=== PATIENT | male | born 1980 | race Caucasian/White ===

== ENCOUNTER 2021-06-07 11:27 | Emergency (ER) | payer OTHER, SELFPAY ==
[2021-06-07 11:30] VITALS: BP 138/84; PULSE 83; RESP 18; TEMP 37.6; O2SAT 96; BMI 32.9
--- NOTE | 2021-06-07 12:14 | ED.FALL ---
HPI - Fall General Chief Complaint: Fall Stated Complaint: Head Inj (Fall) Time Seen by Provider: 06/07/21 12:03 Source: patient Mode of arrival: ambulatory Limitations: no limitations History of Present Illness HPI Narrative: 41-year-old male who is currently transitioning to female transgender presenting to the ED with complaints of intermittent headaches, body aches after she had a mechanical fall approximately 3 days ago with loss of consciousness. She reports that she was evaluated at [facility] and had imaging along with a CT scan of her brain which showed no abnormalities. She reports that she also had labs and was all normal. Although they did not give her any Motrin Tylenol or muscle relaxant or anything she was able to buy Motrin Tylenol [id number]. Although Motrin Tylenol are not providing any symptomatic relief. Denies any new injuries complaints or concerns. Does not want any new imaging at this time. complaint: fall Onset (ago): day(s) (3) Fall from: standing Fall witnessed: no Place fall occurred: home Loss of consciousness: yes Prolonged down time: no and unclear Symptoms prior to fall: none Context: tripped/slipped Location of injury: head, neck and back Severity: moderate Quality: burning and aching Associated symptoms (after fall): headache and other (And body pains) Related Data Previous Rx's Medication Instructions Recorded acetaminophen 500 mg tablet 500 mg PO Q6H PRN #14 tab 06/07/21 (Tylenol Extra Strength) cyclobenzaprine 10 mg tablet 10 mg PO Q8H PRN #14 tab 06/07/21 ibuprofen 800 mg tablet 800 mg PO Q8H PRN #14 tab 06/07/21 trolamine salicylate 10 % topical 1 appl TOPICAL QID PRN #226.8 g 06/07/21 cream (Aspercreme) Allergies Allergy/AdvReac Type Severity Reaction Status Date / Time No Known Allergies Allergy Unverified 02/02/20 15:06 [No Known Allergies*] Review of Systems Review of Systems: Constitutional : No changes in activity, No lethargy, No recent prior head injury, No agitation, No increased fussiness ENT/Mouth : No Ear Pain, No Nasal discharge/drainage Eyes: No Eye Pain, No Swelling, No Redness, No Foreign Body, No Vision Changes Cardiovascular : No Chest Pain, No SOB Respiratory : No Cough Gastrointestinal : No Nausea, No Vomiting, No abdominal Pain Genitourinary : No Dysuria, No Urinary Frequency, No Urinary Incontinence, No Urgency, No Flank Pain Musculoskeletal : + joint pains, No neck stiffness, No back pain/injury Skin : No lacerations Neuro : No unsteady gait, No Paresthesias, No Loss of Consciousness, No altered mental status, + intermittent Headache Yes all other systems are reviewed and are negative [facility] Past Medical History Attestation statement: The following information was validated with the patient. Medical History Diabetes Hyperkalemic periodic paralysis Substance-related disorder Surgical History H/O tooth extraction Social History Social History Advance Directives: No Advance Directives Information Provided: No Physical Exam Vital Signs: Vital Signs: Last Vital Signs Temp 99.6 F 06/07/21 11:30 Pulse 83 06/07/21 11:30 Resp 18 06/07/21 11:30 BP 138/84 06/07/21 11:30 Pulse Ox 96 06/07/21 11:30 BMI result Body Mass Index 32.9 Vital signs have been reviewed as normal and appeared to be correct. Blood pressure normal. Heart rate normal. Respiration rate normal. Temperature normal. Oxygen saturation normal. Appearance: Alert. Oriented X3. No acute distress. Head: Normal external exam. Normocephalic. Atraumatic. Able to rotate head bilaterally. Eyes: PERRLA. EOMI. No nystagmus noted. Conjunctiva and sclera normal. Eyelids normal. Corneal reflex normal. ENT: EAC normal. TM's Normal. Hearing normal. Pharynx normal. Uvula midline. tongue midline. Moist mucous membranes. No trismus noted. No drooling noted. No muffled voice noted. No nystagmus noted. Neck: Normal inspection. Neck supple. FROM. No adenopathy. Trachea midline. Thyroid Normal. No meningeal signs. No neck mass noted. CVS: Normal heart rate and rhythm. Heart sound normal. No murmurs noted. Pulses normal throughout. Respiratory: No respiratory distress. Painless inspiration. Breath sounds normal. No wheezes/rales/rhonchi noted. Chest nontender. No accessory muscle usage noted or decreased air movement noted. Abdomen: Soft and nontender. Bowel sounds normal in all 4 quadrants. No distention noted. No organomegaly noted. No visible injury noted. Back: No CVA tenderness. Full range of motion noted. Skin: Skin warm and dry. Normal skin color. Normal skin turgor. No rashes/lesions/lacerations noted. Extremities: No lower extremity edema. Extremities exhibit normal range of motion. Extremities nontender. Able to shrug shoulders bilaterally and keep up against resistance. Neuro: Oriented X 3. No motor deficit. No sensory deficit. Reflexes normal. Moving all extremities. No focal motor deficits. Cranial nerves II-XI intact bilaterally. Facial strength normal. Normal cognition. Speech normal. Gait normal. Strength 5/5 throughout. No pronator drift. No tremor noted. No fasciculations noted. No rigidity noted. Muscle tone normal throughout. No asterixis noted. [id number] test normal. Heel to aguilar test normal. Tandem gait normal. Does not sway with eyes open. Romberg test negative. Rapid alternating movement upper extremity normal. Rapid alternating movement lower extremity normal. Hand drop from overhead Misses face. Course Course Course Narrative: 41-year-old male who is currently transitioning to female transgender presenting to the ED with complaints of intermittent headaches, body aches after she had a mechanical fall approximately 3 days ago with loss of consciousness. She reports that she was evaluated at [facility] and had imaging along with a CT scan of her brain which showed no abnormalities. She reports that she also had labs and was all normal. Although they did not give her any Motrin Tylenol or muscle relaxant or anything she was able to buy Motrin Tylenol [id number]. Although Motrin Tylenol are not providing any symptomatic relief. Denies any new injuries complaints or concerns. Does not want any new imaging at this time. Although I did offer CT scan of head/neck and back although patient reports that she already had all these imaging and they were all negative she just needs something for pain and she does not want any narcotics. Therefore at this time will DC home with Flexeril and instructions to continue taking the Motrin Tylenol and to return if any new or worsening symptoms. Patient understands agrees with this plan. MDM - Fall Medical Records Attestation: I reviewed the patient's medical records. Discharge Plan Discharge Clinical Impression: Fall, Muscle strain Patient Disposition: Home, Self-Care Instructions: Musculoskeletal Pain (ED), Fall Prevention (ED) Prescriptions: New cyclobenzaprine 10 mg tablet 10 mg PO Q8H PRN (Reason: Muscle spasm) Qty: 14 RF: 0 ibuprofen 800 mg tablet 800 mg PO Q8H PRN (Reason: pain) Qty: 14 RF: 0 acetaminophen [Tylenol Extra Strength] 500 mg tablet 500 mg PO Q6H PRN (Reason: pain) Qty: 14 RF: 0 trolamine salicylate [Aspercreme] 10 % cream 1 appl topical QID PRN (Reason: muscle pain) Qty: 226.8 RF: 0 Referrals: Physician,Unknown J [Primary Care Provider] - 2 days (your pcp) Print Language: Welsh
[2021-06-07] MEDS: Cyclobenzaprine HCl 10 MG TABLET PO (12:33)
== END 2021-06-07 12:54 | disposition home or self-care (01) ==
PROVIDERS: Emergency Provider Emergency Medicine Emergency Medical Services
DX: T14.8XXA Other injury of unspecified body region, initial encounter (principal); Y99.9 Unspecified external cause status; M79.18 Myalgia, other site
CPT/HCPCS: 99283; 99284

== ENCOUNTER 2021-06-26 10:49 | Emergency (ER) | payer OTHER, SELFPAY ==
[2021-06-26 10:56] VITALS: BP 138/79; PULSE 76; RESP 19; TEMP 36.1; O2SAT 100; BMI 33.0
--- NOTE | 2021-06-26 11:26 | ED_ITS ---
HPI - General Adult General Chief complaint: General Medical Stated complaint: swollen testicles Time Seen by Provider: 06/26/21 11:26 History of Present Illness HPI narrative: Patient complains of redness and irritation under his foreskin for 2 weeks, no other discharge no scrotal or testicular swelling no fever Patient is a diabetic who says his sugar is poorly controlled and is followed in the [facility] in [place] Related Data Previous Rx's Medication Instructions Recorded acetaminophen 500 mg tablet 500 mg PO Q6H PRN #14 tab 06/07/21 (Tylenol Extra Strength) cyclobenzaprine 10 mg tablet 10 mg PO Q8H PRN #14 tab 06/07/21 ibuprofen 800 mg tablet 800 mg PO Q8H PRN #14 tab 06/07/21 trolamine salicylate 10 % topical 1 appl TOPICAL QID PRN #226.8 g 06/07/21 cream (Aspercreme) clotrimazole 1 % topical cream 1 appl TOPICAL BID 14 Days #30 g 06/26/21 mupirocin 2 % topical ointment 1 appl TOPICAL BID 5 Days #15 g 06/26/21 Allergies Allergy/AdvReac Type Severity Reaction Status Date / Time No Known Allergies Allergy Unverified 02/02/20 15:06 [No Known Allergies*] Review of Systems Review of Systems: Positive for rash inner foreskin Negatives are no fever no chills no dizziness no weakness no fainting no feeling faint no headache no neck pain no chest pain no shortness of breath no abdominal pain no dysuria no discharge no testicular swelling or pain, no other rashes Yes all other systems are reviewed and are negative PMFSH Past Medical History Source: nursing notes reviewed Medical History Diabetes Hyperkalemic periodic paralysis Substance-related disorder Surgical History H/O tooth extraction Social History Social History Advance Directives: No Advance Directives Information Provided: No Physical Exam Vital Signs: Vital Signs: Last Vital Signs Temp 97 F 06/26/21 10:56 Pulse 76 06/26/21 10:56 Resp 19 06/26/21 10:56 BP 138/79 06/26/21 10:56 Pulse Ox 100 06/26/21 10:56 BMI result Body Mass Index 33.0 General appearance comfortable cheerful relax no acute distress Head is normocephalic atraumatic Neck is supple Respiratory no distress Abdomen soft nontender Genital exam under the foreskin there is a red rash with some white patches there is no discharge no other sores no herpetic lesions, no testicular swelling or tenderness Extremities full range of motion x4 Skin no other rashes Course Course Course Narrative: Patient is compliant with his metformin but when he does his fingersticks there often between 2 and 300 and he is advised that he may need medication adjustment from his doctor, I also did call and or chronology and they said they could probably see him within 2 weeks to help get control of his diabetes The patient said he understood this and would follow with both his doctor and hopefully with the endocrinology clinic His balanitis is treated with mupirocin and clotrimazole Medical Decision Making Lab Data Labs: Lab Results 06/26/21 Range/Units 12:25 Chlam trachomat DNA PCR NOT DETECTED (Not Detect.) N.gonorrhoeae DNA (PCR) NOT DETECTED (Not Detect.) Discharge Plan Discharge Clinical Impression: Diabetes, Balanitis Patient Disposition: Home, Self-Care Additional Instructions: You likely have a fungal infection or possibly a bacterial infection under the foreskin We are treating this with anti fungal and an antibiotic cream THIS IS MOST LIKELY FROM POORLY CONTROLLED DIABETES When sugar is high fungus and bacteria grow out of control I called our endocrine and Diabetes Clinic and they have a new doctor Dr. Chakraborty who is going to start in 1-2 weeks You are on his list of new patient's and they should call you with in 10 days with an appointment If they do not call you, you should call them after 10 days Make sure that the desk staff in the facility you are staying in knows to expect a call and take a message Return any time for fever worse pain and swelling any worse condition or any concerns Prescriptions: New mupirocin 2 % ointment 1 appl topical BID 5 Days Qty: 15 0RF clotrimazole 1 % cream 1 appl topical BID 14 Days Qty: 30 0RF No Action cyclobenzaprine 10 mg tablet 10 mg PO Q8H PRN (Reason: Muscle spasm) Qty: 14 0RF ibuprofen 800 mg tablet 800 mg PO Q8H PRN (Reason: pain) Qty: 14 0RF acetaminophen [Tylenol Extra Strength] 500 mg tablet 500 mg PO Q6H PRN (Reason: pain) Qty: 14 0RF trolamine salicylate [Aspercreme] 10 % cream 1 appl topical QID PRN (Reason: muscle pain) Qty: 226.8 0RF Referrals: Corinne Llamas MD [Physician] - 1 week (Diabetic with poorly controlled glucose often in 300 range) Interventions: ED Discharge Assessment Last Done: 06/26/21 12:28 Discharge Date/Time: 06/26/21 12:30
[2021-06-26] MEDS: Fluconazole 150 MG TABLET PO (12:22)
[2021-06-26 14:17] LABS: CT PCR NOT DETECTED (Not Detect.); NG PCR NOT DETECTED (Not Detect.)
== END 2021-06-26 12:30 | disposition home or self-care (01) ==
PROVIDERS: Physician Assistant Medical; Emergency Provider Emergency Medicine
DX: N48.1 Balanitis (principal); E11.9 Type 2 diabetes mellitus without complications
CPT/HCPCS: 87491; 87591; 99283

== ENCOUNTER 2021-06-28 12:46 | Emergency (ER) | payer OTHER, SELFPAY ==
[2021-06-28 14:51] VITALS: BP 139/79; PULSE 78; RESP 16; TEMP 36.9; O2SAT 100; BMI 32.9
[2021-06-28 15:43] LABS: Glucose, Whole Blood 226 mg/dL (60-115)
--- NOTE | 2021-06-28 15:48 | ED.GENADULT ---
HPI - General Adult General Chief complaint: Skin/Abscess/Foreign Body Stated complaint: diabetic infection Time Seen by Provider: 06/28/21 15:16 Source: patient Mode of arrival: ambulatory History of Present Illness HPI narrative: 41-year-old male recently diagnosed with balanitis seen in the ED on 06/26/2021 Rx Mupirocin and Clotrimazole, & given 1 time dose of p.o. Diflucan in the ED, presenting to the ED complaining of continued/worsening penile discharge/irritation and swelling. Reports compliance with medications. Denies lesions, scrotal pain/swelling, concern for STI, dysuria/hematuria, abdominal pain, nausea/vomiting. Denies being sexually active. Onset (ago): day(s) Related Data Previous Rx's Medication Instructions Recorded acetaminophen 500 mg tablet 500 mg PO Q6H PRN #14 tab 06/07/21 (Tylenol Extra Strength) cyclobenzaprine 10 mg tablet 10 mg PO Q8H PRN #14 tab 06/07/21 ibuprofen 800 mg tablet 800 mg PO Q8H PRN #14 tab 06/07/21 trolamine salicylate 10 % topical 1 appl TOPICAL QID PRN #226.8 g 06/07/21 cream (Aspercreme) clotrimazole 1 % topical cream 1 appl TOPICAL BID 14 Days #30 g 06/26/21 mupirocin 2 % topical ointment 1 appl TOPICAL BID 5 Days #15 g 06/26/21 clotrimazole 1 % topical cream 1 appl TOPICAL BID 14 Days #30 g 06/27/21 Allergies Allergy/AdvReac Type Severity Reaction Status Date / Time No Known Allergies Allergy Unverified 02/02/20 15:06 [No Known Allergies*] Review of Systems Review of Systems: Constitutional: No Fever, No Chills ENT/Mouth: No Ear Pain, No Nasal Congestion, No sore throat, No Rhinorrhea, No Swallowing Difficulty Cardiovascular: No Chest Pain, No SOB Respiratory: No Cough, No Sputum Gastrointestinal: No Nausea, No Vomiting, No Diarrhea, No Constipation, No Abdominal pain Genitourinary: No Dysuria, No Urinary Frequency, No Hematuria, No Urinary Incontinence, No Urgency, No Flank Pain, +penile discharge/swelling, no scrotal pain/tenderness Musculoskeletal: No joint pain, No Myalgias, No Joint Swelling Skin: No Skin Lesions, No rash Yes all other systems are reviewed and are negative [facility] Past Medical History Attestation statement: The following information was validated with the patient. Medical History Diabetes Hyperkalemic periodic paralysis Substance-related disorder Surgical History H/O tooth extraction Social History Social History Advance Directives: No Advance Directives Information Provided: No Physical Exam ED Vital Signs: Vital Signs - 24 hr 06/28/21 14:51 Temperature 98.4 F Pulse Rate 78 Respiratory Rate 16 Blood Pressure 139/79 Pulse Oximetry 100 BMI result Body Mass Index 32.9 Const General: cooperative and healthy appearing Orientation/consciousness: patient oriented x3 Limitations: no limitations HENMT Head: Yes normal to inspection Ears: hearing grossly normal bilaterally General nose exam: Normal external nose present Face and sinus: Yes normal facial exam Eyes General: appearance normal, both eyes and all related structures EOM: EOMs intact bilaterally Neck Neck: Yes normal visual inspection and Yes no meningeal signs Resp Effort & Inspection: normal respiratory effort and no respiratory distress Cardio Rate: regular rate Heart sounds: S1 normal heart sound present and S2 normal heart sound present GI Inspection: Yes normal to inspection Palpation (GI): Soft to palpation, nontender, no guarding and not rigid Other: Foreskin mildly swollen, retractable. Scant amount of thick white discharge noted under foreskin. No lesions/bumps. No scrotal/testicular swellingo tenderness Penis: uncircumcised Skin Rashes: no rashes Wounds: no wounds Neuro General: patient oriented x3 and no meningeal signs Gait exam (Neuro): Normal gait present Extrem General: Yes normal to inspection Course Course Course Narrative: POC 226 -1800--UA negative Medical Decision Making [facility] Narrative Medical decision making narrative: 41-year-old male recently diagnosed with balanitis seen in the ED on 06/26/2021 Rx Mupirocin and Clotrimazole, & given 1 time dose of p.o. Diflucan in the ED, presenting to the ED complaining of continued/worsening penile discharge/irritation and swelling. On exam VSS, NAD, physical exam as above, foreskin retractable with scant amount of white thick DC noted consistent with fungal balanitis. Patient urinating appropriately, was treated appropriately 2 days ago. Will obtain UA Discussed with patient continued compliance with previously prescribed medications Lab Data Labs: Lab Results 06/28/21 06/28/21 Range/Units 15:33 16:36 POC Glucose 226 H (60-115) mg/dL Urine Color YELLOW Urine Appearance CLEAR Urine pH 5.5 (5.0-8.0) Ur Specific [place] 1.015 (1.005-1.025) Urine Protein NEG (NEG-TRACE) MG/DL Urine Glucose (UA) >=1000 H (NEG) MG/DL Urine Ketones NEG (NEG) MG/DL Urine Blood NEG (NEG) Urine Nitrite NEG (NEG) Ur Leukocyte Esterase NEG (NEG) Urine RBC 0-2 (0) /HPF Urine WBC 0-2 (0-4) /HPF Ur Squamous Epith Cells TRACE /LPF Urine Bacteria NONE /LPF Discharge Plan Discharge Clinical Impression: Balanitis Patient Disposition: Home, Self-Care Instructions: Balanitis (ED) Additional Instructions: continue previously prescribed medications Make sure you clean the penis very well, keep dry and clean Please follow-up with your primary care doctor If symptoms persist or worsen, your unable to urinate, continued or worsening swelling, develops red bumps/lesions or testicular swelling please return to the ED Prescriptions: No Action cyclobenzaprine 10 mg tablet 10 mg PO Q8H PRN (Reason: Muscle spasm) Qty: 14 0RF ibuprofen 800 mg tablet 800 mg PO Q8H PRN (Reason: pain) Qty: 14 0RF acetaminophen [Tylenol Extra Strength] 500 mg tablet 500 mg PO Q6H PRN (Reason: pain) Qty: 14 0RF trolamine salicylate [Aspercreme] 10 % cream 1 appl topical QID PRN (Reason: muscle pain) Qty: 226.8 0RF mupirocin 2 % ointment 1 appl topical BID 5 Days Qty: 15 0RF clotrimazole 1 % cream 1 appl topical BID 14 Days Qty: 30 0RF clotrimazole 1 % cream 1 appl topical BID 14 Days Qty: 30 0RF Referrals: Physician,None [Primary Care Provider] - 5 days (as needed)
[2021-06-28 16:45] LABS: Appearance Urine CLEAR; Color Urine YELLOW; Glucose Urine UA >=1000 MG/DL (NEG); Leukocyte Esterase Urine NEG (NEG); Nitrite Urine NEG (NEG); PH 5.5 (5.0-8.0); Specific Gravity - Urine 1.015 (1.005-1.025); Urine Blood NEG (NEG); Urine Ketones NEG (NEG); Urine Protein NEG (NEG-TRACE)
[2021-06-28 17:52] LABS: RBC Urine 0-2 /HPF (0); Squamous Epithelial Cell Urine TRACE /LPF; WBC Urine 0-2 /HPF (0-4)
== END 2021-06-28 18:07 | disposition home or self-care (01) ==
PROVIDERS: Physician Assistant; Emergency Provider Emergency Medicine Emergency Medical Services
DX: N48.1 Balanitis (principal); R36.9 Urethral discharge, unspecified; E11.9 Type 2 diabetes mellitus without complications
CPT/HCPCS: 81001; 82947; 99283

== ENCOUNTER 2022-01-08 23:28 | Emergency (ER) | payer OTHER, SELFPAY ==
[2022-01-08 23:46] VITALS: BP 145/90; PULSE 104; RESP 16; TEMP 36.2; O2SAT 97; BMI 32.1
[2022-01-09 00:49] LABS: Glucose, Whole Blood 119 mg/dL (60-115)
[2022-01-09 07:21] LABS: Glucose, Whole Blood 68 mg/dL (60-115)
[2022-01-09 07:34] LABS: Glucose, Whole Blood 173 mg/dL (60-115)
--- NOTE | 2022-01-09 07:51 | ED.GENADULT ---
HPI - General Adult General Chief complaint: General Medical Stated complaint: Unsure of Blood Sugar levels Time Seen by Provider: 01/09/22 07:37 Source: patient Mode of arrival: ambulatory Limitations: no limitations History of Present Illness HPI narrative: 41 year old male who presented to the emergency department for evaluation of sudden onset of feeling anxious and very cold after taking metformin and Trulicity. The patient has Type II diabetes and has been on these medications for months. The patient does not have a glucometer at home and does not check his blood sugar and does not know how high or low his glucose normally runs. He ate well throughout the day and did not miss any meals. He states thatImmediately after taking his medications he felt very cold. He had a sudden onset of alexandra in the center of his chest which he describes as a sharp pain which was 4/ 10 and a dull pain which was 10/10. The pain lasted seconds to minutes and he had several episodes while in the ED. He has anxiety and he believes he was having an anxiety attack as well. He came to the emergency department for an evaluation and to have his blood glucose checked. His glucose at triage was 64. He was given food to eat with improvement of his glucose with POC values of 119 at 0044 hours and 173 at 0723 hours. Related Data Previous Rx's Medication Instructions Recorded acetaminophen 500 mg tablet 500 mg PO Q6H PRN pain #14 tabs 06/07/21 (Tylenol Extra Strength) cyclobenzaprine 10 mg tablet 10 mg PO Q8H PRN Muscle spasm #14 06/07/21 tabs ibuprofen 800 mg tablet 800 mg PO Q8H PRN pain #14 tabs 06/07/21 trolamine salicylate 10 % topical 1 appl topical QID PRN muscle pain 06/07/21 cream (Aspercreme) #226.8 grams clotrimazole 1 % topical cream 1 appl topical BID 14 days #30 06/26/21 grams mupirocin 2 % topical ointment 1 appl topical BID 5 days #15 grams 06/26/21 clotrimazole 1 % topical cream 1 appl topical BID 2 weeks #30 06/27/21 grams Allergies Allergy/AdvReac Type Severity Reaction Status Date / Time No Known Allergies Allergy Unverified 02/02/20 15:06 [No Known Allergies*] Review of Systems Review of Systems: Yes all other systems are reviewed and are negative PMFSH Past Medical History [facility] Narrative: Social History: He smoked three cigarettes per day x 24 years. He denies alcohol and drug use Medical History Diabetes Hyperkalemic periodic paralysis Substance-related disorder Surgical History H/O tooth extraction Social History Social History Advance Directives: No Advance Directives Information Provided: Yes Physical Exam ED Vital Signs: Vital Signs - 24 hr 01/08/22 23:46 Temperature 97.1 F Pulse Rate 104 H Respiratory Rate 16 Blood Pressure 145/90 H Pulse Oximetry 97 Oxygen Delivery Method Room Air BMI result Body Mass Index 32.1 Const General: cooperative and no acute distress Orientation/consciousness: oriented to person and oriented to place Limitations: no limitations HENMT Head: Yes normal to inspection, Yes normocephalic and Yes atraumatic Ears: external ears normal General nose exam: Normal external nose present Face and sinus: Yes normal facial exam Mouth: Normal oral and palatal mucosa present Throat: Yes posterior oropharynx normal Eyes General: appearance normal, both eyes and all related structures Pupils: Equal, round and reactive pupils present Neck Neck: Yes normal visual inspection, Yes no lymphadenopathy, Yes trachea midline and Yes supple Chest Chest palpation & inspection: normal inspection of the chest and normal palpation of entire chest wall Resp Effort & Inspection: normal respiratory effort and able to speak in complete sentences Auscultation: clear to auscultation bilaterally Cardio Rate: regular rate Rhythm: regular rhythm Heart sounds: S1 normal heart sound present, S2 normal heart sound present and no murmurs GI Inspection: Yes normal to inspection Palpation (GI): Soft to palpation, nontender and no guarding Auscultation: normal bowel sounds General: Yes no CVA tenderness Back/Spine/Pelvis Back: no CVA tenderness Skin General skin exam: no rashes or lesions noted Neuro General: oriented to person and oriented to place Cranial nerves: Yes CN's II-XII intact bilaterally and Yes Equal, round and reactive pupils present Cognition (Neuro): normal cognition Motor exam (neuro): 5/5 motor strength present throughout Extrem General: Yes normal to inspection Psych Appearance: grossly normal Speech and movement: Normal speech and movement present Affect: normal affect Attitude: cooperative Thought process: Normal thought process present Thought content: Normal thought content present Course Course Course Narrative: 41 year old male who presented to the emergency department for evaluation of sudden onset of feeling anxious and very cold after taking metformin and Trulicity. The patient did have a slightly low POC glucose of 64 on presentation and this did improve after eating food in the ED. The pharmokinetics of metformin and Truilicity could not cause a sudden drop in glucose and I did discuss this with him. I believe that his symptoms were caused by anxiety and I did discuss this with the patient. He was advised to get a glucometer and to get training so that he can track his glucose values to improve his diabetes. He was discharged to home. Medical Decision Making Lab Data Labs: Lab Results 01/08/22 01/09/22 01/09/22 Range/Units 23:39 00:44 07:27 POC Glucose 68 119 H 173 H (60-115) mg/dL Discharge Plan Discharge Clinical Impression: Hypoglycemia, Anxiety Patient Disposition: Home, Self-Care Instructions: Anxiety (ED) Additional Instructions: Your point of care glucose (sugar) at triage today was 68. Your repeat point of care glucose after eating were 119 at 00:44 hours and 173 at 07:27 hours. At this time, I do not think that you low sugar was caused by either metformin or Trulicity in you should continue to take these medications as prescribed by your doctor. You should talk to your doctor about getting a glucose meter and you should be trained on how to check your sugars at home slit if he have a low sugar you can eat some more food. I do think that the low sugar then triggered anxiety attack in you and this explains your other symptoms. Follow-up with your doctor in 2 days. Please return to the emergency department if your symptoms get worse or if you develop any symptoms that are concerning to you. Prescriptions: No Action cyclobenzaprine 10 mg tablet 10 mg PO Q8H PRN (Reason: Muscle spasm) Qty: 14 0RF ibuprofen 800 mg tablet 800 mg PO Q8H PRN (Reason: pain) Qty: 14 0RF acetaminophen [Tylenol Extra Strength] 500 mg tablet 500 mg PO Q6H PRN (Reason: pain) Qty: 14 0RF trolamine salicylate [Aspercreme] 10 % cream 1 appl topical QID PRN (Reason: muscle pain) Qty: 226.8 0RF mupirocin 2 % ointment 1 appl topical BID 5 Days Qty: 15 0RF clotrimazole 1 % cream 1 appl topical BID 14 Days Qty: 30 0RF clotrimazole 1 % cream 1 appl topical BID 14 Days Qty: 30 0RF Interventions: LWBS Worksheet Last Done: 01/09/22 05:23 ED Discharge Assessment Last Done: 01/09/22 08:22 Discharge Date/Time: 01/09/22 08:23
== END 2022-01-09 08:23 | disposition home or self-care (01) ==
PROVIDERS: Emergency Provider Emergency Medicine Emergency Medical Services
DX: E11.649 Type 2 diabetes mellitus with hypoglycemia without coma (principal); F41.9 Anxiety disorder, unspecified; Z79.84 Long term (current) use of oral hypoglycemic drugs
CPT/HCPCS: 82947; 99282

== ENCOUNTER 2022-02-10 22:56 | Emergency (ER) | payer OTHER, SELFPAY ==
--- NOTE | ~2022-02-10 | CT_ITS ---
EXAMINATION: CT CERVICAL SPINE WITHOUT CONTRAST CLINICAL INFORMATION: Left arm radiculopathy COMPARISON: None TECHNIQUE: Multidetector CT imaging of the cervical spine was performed without the use of intravenous contrast. Multiplanar reformats created on an independent workstation were reviewed. This CT examination was performed using dose optimization techniques as appropriate, variously including the following: *Automated exposure control *Adjustment of mA and/or kV according to patient size (this includes techniques or standardized protocols for targeted exams where dose is matched to indication/reason for exam; i.e. extremities or head) *Use of iterative reconstruction technique DLP: 697 mGy-cm. FINDINGS: Atlantooccipital alignment is maintained. The vertebral bodies and posterior elements align normally. No acute fracture or subluxation. Vertebral body heights and intervertebral disc spaces are preserved. Minimal uncovertebral arthrosis present bilaterally at C3-C4 and on the left at C6-C7. This results in mild left osseous neural foraminal encroachment at C3-C4 and C6-C7. Small disc herniation at C3-C4 may result in mild central canal stenosis. Small endplate ossified present C7-T1 without significant central canal stenosis or foraminal narrowing. Otherwise, no potential central canal stenosis on the basis of this CT examination. The paraspinal soft tissues are unremarkable. The imaged lung apices are clear. CT/CT cervical spine wo IV con IMPRESSION: No acute fracture or traumatic malalignment. Minimal cervical spondylosis as described.
[2022-02-11 00:11] VITALS: BP 152/80; PULSE 106; RESP 20; TEMP 37.4; O2SAT 97; BMI 31.5
[2022-02-11 02:00] VITALS: BP 150/94; PULSE 93; RESP 16; TEMP 36.7; O2SAT 95
--- NOTE | 2022-02-11 05:13 | ED.EXTPRO ---
HPI - Extremity Problem General Chief complaint: Extremity Problem Stated complaint: left arm pain Time Seen by Provider: 02/11/22 00:44 Source: patient Mode of arrival: ambulatory Limitations: no limitations History of Present Illness HPI Narrative: Patient complaining of left arm pain with tingling sensation in 5th and 4th finger for last 4- 5 months happened after he fell from the bed seen at [facility] was given Novocain shot in the chest with chest pain but left arm pain was not at rest no headache no weakness of the hands or legs Related Data Previous Rx's Medication Instructions Recorded acetaminophen 500 mg tablet 500 mg PO Q6H PRN pain #14 tabs 06/07/21 (Tylenol Extra Strength) cyclobenzaprine 10 mg tablet 10 mg PO Q8H PRN Muscle spasm #14 06/07/21 tabs ibuprofen 800 mg tablet 800 mg PO Q8H PRN pain #14 tabs 06/07/21 trolamine salicylate 10 % topical 1 appl topical QID PRN muscle pain 06/07/21 cream (Aspercreme) #226.8 grams clotrimazole 1 % topical cream 1 appl topical BID 14 days #30 06/26/21 grams mupirocin 2 % topical ointment 1 appl topical BID 5 days #15 grams 06/26/21 clotrimazole 1 % topical cream 1 appl topical BID 2 weeks #30 06/27/21 grams cyclobenzaprine 10 mg tablet 10 mg PO Q8H #20 tabs 02/11/22 ibuprofen 600 mg tablet 600 mg PO Q6H PRN Pain, Moderate 02/11/22 #30 tabs Allergies Allergy/AdvReac Type Severity Reaction Status Date / Time No Known Allergies Allergy Unverified 02/02/20 15:06 [No Known Allergies*] Review of Systems Review of Systems: Yes all other systems are reviewed and are negative PMFSH Past Medical History Medical History Diabetes Hyperkalemic periodic paralysis Substance-related disorder Surgical History H/O tooth extraction Social History Social History Advance Directives: No Physical Exam Vital Signs: Vital Signs: Last Vital Signs Temp 98.1 F 02/11/22 02:00 Pulse 93 02/11/22 02:00 Resp 16 02/11/22 02:00 BP 150/94 H 02/11/22 02:00 Pulse Ox 95 02/11/22 02:00 O2 Del Method 02/11/22 00:11 BMI result Body Mass Index 31.5 Appearance: Alert. Oriented X3. No acute distress. Eyes: PERRLA, No Nystagmus ENT: Pharynx normal. Oral Mucosa moist Neck: Normal inspection. Neck supple. Diffuse tenderness paraspinal area no midline step-offs are no deformity CVS: Normal heart rate and rhythm. Pulses normal. Respiratory: No respiratory distress. Equal air entry bilateral, no wheezing/rales/rhonchi Abdomen: Soft and nontender. Bowel sounds are present, no mass palpable, no CVA tenderness Skin: Skin warm and dry. Normal skin color. Normal skin turgor. Extremities: No lower extremity edema. No calf tenderness good strength of small muscles of left hand no neurovascular deficit Neuro: Oriented X 3. No motor deficit. No sensory deficit. MDM - Extremity (Nontraumatic) MDM Narrative Medical decision making narrative: The C-spine negative for acute pathology likely radiculopathy advised to follow-up with PCP/neuro for further evaluation Discharge Plan Discharge Clinical Impression: Left cervical radiculopathy Patient Disposition: Home, Self-Care Instructions: Cervical Radiculopathy (ED) Additional Instructions: Take pain medication and muscle relaxants as advised Follow with PCP Prescriptions: New cyclobenzaprine 10 mg tablet 10 mg PO Q8H Qty: 20 0RF ibuprofen 600 mg tablet 600 mg PO Q6H PRN (Reason: Pain, Moderate) Qty: 30 0RF No Action cyclobenzaprine 10 mg tablet 10 mg PO Q8H PRN (Reason: Muscle spasm) Qty: 14 0RF ibuprofen 800 mg tablet 800 mg PO Q8H PRN (Reason: pain) Qty: 14 0RF acetaminophen [Tylenol Extra Strength] 500 mg tablet 500 mg PO Q6H PRN (Reason: pain) Qty: 14 0RF trolamine salicylate [Aspercreme] 10 % cream 1 appl topical QID PRN (Reason: muscle pain) Qty: 226.8 0RF mupirocin 2 % ointment 1 appl topical BID 5 Days Qty: 15 0RF clotrimazole 1 % cream 1 appl topical BID 14 Days Qty: 30 0RF clotrimazole 1 % cream 1 appl topical BID 14 Days Qty: 30 0RF
[2022-02-11 06:40] VITALS: BP 107/62; PULSE 79; RESP 18; TEMP 36.4
== END 2022-02-11 06:44 | disposition home or self-care (01) ==
PROVIDERS: Emergency Provider Internal Medicine
DX: M54.12 Radiculopathy, cervical region (principal); M79.602 Pain in left arm; M54.2 Cervicalgia
CPT/HCPCS: 72125; 99283; 99284